=== PATIENT | male | born 2000 | race Two or more races ===

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

== ENCOUNTER 2018-01-24 08:00 | Inpatient (IN) | payer OTHER ==
[~2018-01-24] VITALS: Ht 172.7 cm; Wt 74.0 kg
[~2018-01-24 08:00] MED LIST: INSU100I11 SQ; INSU100V13 SQ
[2018-01-24] MEDS ORDERED: ONDANSETRON 2MG/ML, 2ML ONE (08:57)
[2018-01-24] MEDS ORDERED: ONDANSETRON 2MG/ML, 2ML IVPush ONE (09:00)
[2018-01-24] MEDS ORDERED: SODIUM CHLORIDE 0.9% 1,000ML IVBOLUS ONE (09:00)
[2018-01-24 09:07] LABS: BASOPHILS # (AUTO) 0.03 x10^3/uL (0-0.3); BASOPHILS % (AUTO) 0 % (0-1); EOSINOPHILS # (AUTO) 0.01 x10^3/uL (0-0.8); EOSINOPHILS % (AUTO) 0 % (1-7); LYMPHOCYTES # (AUTO) 1.72 x10^3/uL (1-6.1); LYMPHOCYTES % (AUTO) 13 % (22-44); MD NO; MEAN CORPUSCULAR HEMOGLOBIN 31.3 pg (27.5-34.5); MEAN CORPUSCULAR VOLUME 92.1 fL (81-97); MEAN PLATELET VOLUME 8.2 fL (7.4-10.4); MONOCYTES # (AUTO) 0.26 x10^3/uL (0-1.4); MONOCYTES % (AUTO) 2 % (2-9); NEUTROPHILS # (AUTO) 11.39 x10^3/uL (1.8-8.0); NEUTROPHILS % (AUTO) 85 % (42-75); PLATELET COUNT 202 x10^3/uL (130-400)
[2018-01-24 09:10] LABS: PH, VENOUS 7.089 pH (7.320-7.420)
[2018-01-24] MEDS ORDERED: REGULAR INSULIN 62.5 UNITS in SODIUM CHLORIDE 0.9% 249.375 ML IV PRN ×2 (09:17→11:00)
[2018-01-24 09:24] LABS: MICROSCOPIC AUTO
[2018-01-24 09:34] LABS: CULTURE INDICATED? NO
[2018-01-24 09:49] LABS: ACETONE, SERUM Large (80mg/dL) mg/dL (Negative)
[2018-01-24 09:50] LABS: CHLORIDE 105 mmol/L (98-107)
[2018-01-24 09:57] LABS: ALANINE AMINOTRANSFERASE 26 U/L (12-78); ALBUMIN 4.3 g/dL (3.4-5.0); ANION GAP 19 mmol/L (5-15); CALCIUM 8.4 mg/dL (8.5-10.1); CREATININE 1.19 mg/dL (0.7-1.3)
[2018-01-24 10:00] LABS: ALKALINE PHOSPHATASE 112 U/L (45-117); BILIRUBIN,TOTAL 0.5 mg/dL (0.2-1.0); TOTAL PROTEIN 8.1 g/dL (6.4-8.2)
[2018-01-24] MEDS ORDERED: POLYETHYLENE GLYCOL 17 GM PACKET PO PRN (11:00)
[2018-01-24] MEDS ORDERED: ACETAMINOPHEN 325 MG TABLET PO PRN (11:00)
[2018-01-24] MEDS ORDERED: SODIUM CHLORIDE 0.45% 1,000 ML IV SCH (11:00)
[2018-01-24] MEDS ORDERED: ONDANSETRON 2MG/ML, 2ML IVPush PRN (11:00)
[2018-01-24] MEDS ORDERED: LABETALOL 5MG/ML, 20ML IVPush PRN (11:00)
[2018-01-24 12:09] LABS: HEMOGLOBIN A1C 8.4 % (4.2-6.3)
[2018-01-24] MEDS: ENOXAPARIN 40 MG/0.4 ML SQ SCH (13:02)
[2018-01-24 14:33] LABS: ANION GAP 18 mmol/L (5-15); CALCIUM 8.4 mg/dL (8.5-10.1); CHLORIDE 108 mmol/L (98-107); CREATININE 1.05 mg/dL (0.7-1.3)
[2018-01-24] MEDS: D5%-0.45NACL+KCL 20MEQ 1,000 ML IV SCH ×2 (15:34→23:03)
[2018-01-24 18:26] LABS: ANION GAP 15 mmol/L (5-15); CALCIUM 8.3 mg/dL (8.5-10.1); CHLORIDE 107 mmol/L (98-107); CREATININE 1.01 mg/dL (0.7-1.3)
[2018-01-24 22:21] LABS: ANION GAP 9 mmol/L (5-15); CALCIUM 8.5 mg/dL (8.5-10.1); CHLORIDE 109 mmol/L (98-107); CREATININE 1.06 mg/dL (0.7-1.3)
[2018-01-25 03:40] LABS: ANION GAP 8 mmol/L (5-15); CALCIUM 8.6 mg/dL (8.5-10.1); CHLORIDE 111 mmol/L (98-107); CREATININE 0.92 mg/dL (0.7-1.3)
[2018-01-25] MEDS: D5%-0.45NACL+KCL 20MEQ 1,000 ML IV SCH (05:36)
[2018-01-25 05:50] LABS: ALANINE AMINOTRANSFERASE 21 U/L (12-78); ALBUMIN 3.6 g/dL (3.4-5.0); ANION GAP 9 mmol/L (5-15); CALCIUM 8.2 mg/dL (8.5-10.1); CHLORIDE 109 mmol/L (98-107); CREATININE 0.98 mg/dL (0.7-1.3)
[2018-01-25 05:53] LABS: ALKALINE PHOSPHATASE 85 U/L (45-117); BILIRUBIN,TOTAL 0.8 mg/dL (0.2-1.0); TOTAL PROTEIN 6.6 g/dL (6.4-8.2)
[2018-01-25 05:55] LABS: BASOPHILS # (AUTO) 0.03 x10^3/uL (0-0.3); BASOPHILS % (AUTO) 0 % (0-1); EOSINOPHILS # (AUTO) 0.03 x10^3/uL (0-0.8); EOSINOPHILS % (AUTO) 0 % (1-7); LYMPHOCYTES # (AUTO) 2.16 x10^3/uL (1-6.1); LYMPHOCYTES % (AUTO) 25 % (22-44); MD NO; MEAN CORPUSCULAR HEMOGLOBIN 31.7 pg (27.5-34.5); MEAN CORPUSCULAR HGB CONC 34.8 g/dL (33.2-36.2); MEAN CORPUSCULAR VOLUME 91.1 fL (81-97); MEAN PLATELET VOLUME 7.5 fL (7.4-10.4); MONOCYTES # (AUTO) 0.79 x10^3/uL (0-1.4); MONOCYTES % (AUTO) 9 % (2-9); NEUTROPHILS # (AUTO) 5.53 x10^3/uL (1.8-8.0); NEUTROPHILS % (AUTO) 65 % (42-75); PLATELET COUNT 295 x10^3/uL (130-400); RED CELL DISTRIBUTION WIDTH 13.4 % (9.4-14.8)
[2018-01-25] MEDS: INSULIN LISPRO 100 UNITS/ML, PEN SQ-INSULIN SCH ×4 (07:56→20:53)
[2018-01-25] MEDS: SENNA/DOCUSATE TABLET PO SCH (07:57)
[2018-01-25] MEDS ORDERED: SODIUM PHOSPHATE 20 MMOL in SODIUM CHLORIDE 0.9% 500 ML IV ONE (08:00)
[2018-01-25] MEDS ORDERED: INSULIN GLARGINE 100 UNITS/ML, PEN SQ-INSULIN SCH (09:00)
[2018-01-25] MEDS: ENOXAPARIN 40 MG/0.4 ML SQ SCH (12:04)
[2018-01-25 12:53] VITALS: BP 118/73
[2018-01-25 19:57] VITALS: BP 122/72
[2018-01-25] MEDS: INSULIN GLARGINE 100 UNITS/ML, PEN SQ-INSULIN SCH (20:53)
[2018-01-26 06:03] LABS: ANION GAP 6 mmol/L (5-15); CALCIUM 8.3 mg/dL (8.5-10.1); CHLORIDE 108 mmol/L (98-107)
[2018-01-26 06:04] LABS: CREATININE 0.65 mg/dL (0.7-1.3)
[2018-01-26] MEDS: INSULIN LISPRO 100 UNITS/ML, PEN SQ-INSULIN SCH ×4 (07:00→21:07)
[2018-01-26 07:56] VITALS: BP 129/66
[2018-01-26] MEDS: SENNA/DOCUSATE TABLET PO SCH (09:00)
[2018-01-26] MEDS: INSULIN GLARGINE 100 UNITS/ML, PEN SQ-INSULIN SCH ×2 (09:58→21:07)
[2018-01-26] MEDS: ENOXAPARIN 40 MG/0.4 ML SQ SCH (10:00)
[2018-01-26] MEDS: SERTRALINE 50MG TABLET PO SCH (12:24)
[2018-01-26 13:09] VITALS: BP 153/70
[2018-01-26] MEDS ORDERED: POTASSIUM CHLORIDE 20 MEQ TAB.ER.PRT PO ONE (17:00)
[2018-01-26 20:17] VITALS: BP 126/77
[2018-01-27 00:42] VITALS: BP 129/77
[2018-01-27] MEDS: INSULIN LISPRO 100 UNITS/ML, PEN SQ-INSULIN SCH ×4 (07:30→20:49)
[2018-01-27 07:35] VITALS: BP 139/69
[2018-01-27] MEDS: SERTRALINE 50MG TABLET PO SCH (10:24)
[2018-01-27] MEDS: ENOXAPARIN 40 MG/0.4 ML SQ SCH (10:25)
[2018-01-27] MEDS: SENNA/DOCUSATE TABLET PO SCH (10:26)
[2018-01-27] MEDS: INSULIN GLARGINE 100 UNITS/ML, PEN SQ-INSULIN SCH ×2 (10:26→20:52)
[2018-01-27] MEDS ORDERED: POTASSIUM CHLORIDE 20 MEQ TAB.ER.PRT PO ONE (12:00)
[2018-01-27 12:17] VITALS: BP 137/73
[2018-01-27 19:00] VITALS: BP 134/81
[2018-01-28 02:05] VITALS: BP 120/65
[2018-01-28 07:13] VITALS: BP 123/74
[2018-01-28] MEDS: INSULIN LISPRO 100 UNITS/ML, PEN SQ-INSULIN SCH ×4 (07:30→20:31)
[2018-01-28] MEDS: SERTRALINE 50MG TABLET PO SCH (08:56)
[2018-01-28] MEDS: ENOXAPARIN 40 MG/0.4 ML SQ SCH (08:56)
[2018-01-28] MEDS: SENNA/DOCUSATE TABLET PO SCH (08:58)
[2018-01-28] MEDS: INSULIN GLARGINE 100 UNITS/ML, PEN SQ-INSULIN SCH ×2 (09:03→20:31)
[2018-01-28 13:46] VITALS: BP 136/71
[2018-01-28 20:46] VITALS: BP 129/81
[2018-01-29 05:52] LABS: CHLORIDE 106 mmol/L (98-107)
[2018-01-29 05:56] LABS: ANION GAP 6 mmol/L (5-15); CREATININE 0.68 mg/dL (0.7-1.3)
[2018-01-29] MEDS: INSULIN LISPRO 100 UNITS/ML, PEN SQ-INSULIN SCH ×4 (07:40→20:50)
[2018-01-29 08:00] VITALS: BP 134/73
[2018-01-29] MEDS: SENNA/DOCUSATE TABLET PO SCH (09:00)
[2018-01-29] MEDS: INSULIN GLARGINE 100 UNITS/ML, PEN SQ-INSULIN SCH ×2 (09:41→20:50)
[2018-01-29] MEDS: SERTRALINE 50MG TABLET PO SCH (09:42)
[2018-01-29] MEDS: ENOXAPARIN 40 MG/0.4 ML SQ SCH (11:00)
[2018-01-29 19:33] VITALS: BP 146/76
[2018-01-30] MEDS: INSULIN LISPRO 100 UNITS/ML, PEN SQ-INSULIN SCH (07:10)
[2018-01-30 07:30] VITALS: BP 125/74
[2018-01-30] MEDS: SERTRALINE 50MG TABLET PO SCH (08:24)
[2018-01-30] MEDS: INSULIN GLARGINE 100 UNITS/ML, PEN SQ-INSULIN SCH (08:25)
[2018-01-30] MEDS: SENNA/DOCUSATE TABLET PO SCH (08:49)
[2018-01-30] MEDS: ENOXAPARIN 40 MG/0.4 ML SQ SCH (11:00)
== END 2018-01-30 12:18 | DRG 638 ==
LOC: ED 10:16 → EDIP 10:20 → CCU 10:54 → 3NE 01-25 10:56 → 2N 01-28 20:43
PROVIDERS: ADMIT Internal Medicine; ATTEND Internal Medicine
DX: E10.10 Type 1 diabetes mellitus with ketoacidosis without coma (principal); F33.1 Major depressive disorder, recurrent, moderate; R45.851 Suicidal ideations; E87.1 Hypo-osmolality and hyponatremia; R45.850 Homicidal ideations; E86.0 Dehydration; E87.6 Hypokalemia; D72.829 Elevated white blood cell count, unspecified; F12.90 Cannabis use, unspecified, uncomplicated; I10 Essential (primary) hypertension; Z79.4 Long term (current) use of insulin; Z83.3 Family history of diabetes mellitus; Z91.5 Personal history of self-harm
CPT/HCPCS: 36415; 80048; 80053; 81001; 82010; 82803; 82962; 83036; 83690; 83735; 84100; 84132; 85025; 87081; 96361; 96374; J1650; J1815; J2405; J3480; J7030; J7040; J7050